=== PATIENT | female | born 1970 | race Caucasian/White ===

== ENCOUNTER → 2022-10-02 08:13 | Outpatient (CLI) | payer OTHER, SELFPAY ==
--- NOTE | 2022-10-02 08:16 | DI.MG.S_ITS ---
BILATERAL DIGITAL SCREENING MAMMOGRAM 3D/2D WITH CAD: 10/02/2022 CLINICAL: Routine screening. Baseline exam. No prior exams were available for comparison. Both breasts are extremely dense, which lowers the sensitivity of mammography (category d />75% glandular tissue). Current study was also evaluated with a Computer Aided Detection (CAD) system. There are grouped calcifications in the right breast at 6 o'clock posterior depth. No other significant masses, calcifications, or other findings are seen in either breast. IMPRESSION: INCOMPLETE: NEEDS ADDITIONAL IMAGING EVALUATION The grouped calcifications in the right breast are indeterminate. Magnification, lateral, and additional views are recommended. Based on Tyrer-Cuzick model (a risk assessment model), the patient's lifetime risk is 21.0% and her 10 year risk is 4.9%. If a patient has an elevated risk, a more comprehensive evaluation should be considered and/or a referral to a genetic counselor. The [place] [employer], [place] [employer], and NCCN Guidelines advise the consideration of Breast MRI as an adjunct to screening mammography in patients whose Lifetime risk to develop breast cancer is 20% or higher. This exam was interpreted at Station ID: [id number]. NOTE: For mammograms, a report in lay terms will be sent to the patient. Approximately 15% of breast malignancies will not be visualized mammographically. In the management of a palpable breast mass, a negative mammogram must not discourage biopsy of a clinically suspicious lesion. Electronically Signed By: Carlos blackman/clarita:10/02/2022 11:56:30 letter sent: Additional Imaging Needed ACR BI-RADS Category 0: Incomplete 3340F
== END ==
PROVIDERS: PCP Pediatrics; Referring Provider Pediatrics; Visit Provider Pediatrics
DX: Z12.31 Encounter for screening mammogram for malignant neoplasm of breast (principal)
CPT/HCPCS: 77063; 77067

== ENCOUNTER → 2022-10-16 09:50 | Outpatient (CLI) | payer OTHER, SELFPAY ==
--- NOTE | 2022-10-16 10:48 | DI.MG.S_ITS ---
Patient Name: SYLVESTER WORLEY date: 1970 Sex: F Attending Physician: Amadeo Indications: Date: 10/18/2022 13:16 At the request of: BUNNY BUCKLEY Procedure: MM special view RT UNILATERAL RIGHT DIGITAL DIAGNOSTIC MAMMOGRAM 3D/2D WITH ADDITIONAL VIEWS: 10/16/2022 CLINICAL: Additional evaluation requested from prior study. Comparison is made to exam dated: 10/02/2022 mammogram - [facility]. The right breast is extremely dense, which lowers the sensitivity of mammography (category d />75% glandular tissue). There are 5 mm grouped round and amorphous calcifications in the right breast at 6 o'clock posterior depth. No other significant masses or calcifications are seen in the breast. IMPRESSION: SUSPICIOUS OF MALIGNANCY Right breast 5 mm grouped calcifications at 6:00 posterior depth. Findings represent a suspicious abnormality. Stereotactic biopsy is recommended. Findings and recommendations were conveyed to the patient by Dr. Arcos at the time of imaging completion. Of note, no priors are available at the time of diagnostic imaging, however patient states this finding was previously biopsed without clip placement. Comparison to outside priors can be performed if they become available. Based on Tyrer-Cuzick model (a risk assessment model), the patient's lifetime risk is 21.0% and her 10 year risk is 4.9%. If a patient has an elevated risk, a more comprehensive evaluation should be considered and/or a referral to a genetic counselor. The [place] [employer], [place] [employer], and NCCN Guidelines advise the consideration of Breast MRI as an adjunct to screening mammography in patients whose Lifetime risk to develop breast cancer is 20% or higher. Continued Report - Page 2 of 2 Patient Name: SYLVESTER WORLEY date: 1970 Sex: F Attending Physician: Amadeo Indications: Date: 10/18/2022 13:16 At the request of: BUNNY BUCKLEY Procedure: MM special view RT This exam was interpreted at Station ID: Unknown. NOTE: For mammograms, a report in lay terms will be sent to the patient. Approximately 15% of breast malignancies will not be visualized mammographically. In the management of a palpable breast mass, a negative mammogram must not discourage biopsy of a clinically suspicious lesion. Electronically Signed By: Florence Serrato M.D. esb/:10/18/2022 13:16:47 letter sent: Biopsy Required ACR BI-RADS Category 4: Suspicious abnormality 3344F
== END ==
PROVIDERS: PCP Pediatrics; Referring Provider Pediatrics; Visit Provider Pediatrics
DX: R92.8 Other abnormal and inconclusive findings on diagnostic imaging of breast (principal); R92.1 Mammographic calcification found on diagnostic imaging of breast
CPT/HCPCS: 77065; G0279

== ENCOUNTER 2022-11-03 21:46 | Emergency (ER) | payer OTHER, SELFPAY ==
[2022-11-03 21:56] VITALS: BP 165/74; PULSE 62; RESP 17; TEMP 36.9; O2SAT 97; BMI 23.5
--- NOTE | 2022-11-03 22:43 | ED_ITS ---
HPI - Back Pain/Injury General Chief Complaint: Back Pain/Injury Stated Complaint: Severe back pain Time Seen by Provider: 11/03/22 22:35 Source: patient Mode of arrival: Ambulatory Limitations: no limitations History of Present Illness HPI Narrative: Patient is a 51-year-old female who is here for evaluation of left-sided lower back discomfort. She states it has been off and on for the past couple days but significantly worse over the past day or so. No fevers. No urinary symptoms. No change in bowel habits. There was not 1 specific incident that caused the discomfort but she states that they have been boating the past couple days and has been doing quite a bit of lifting and moving around. She states that it is not made worse with palpation but is made worse with movements. She had a needle biopsy done today of a breast mass. She was told to not take anti- inflammatories for 24 hours. She did take Tylenol prior to arrival with only minimal improvement. Related Data Previous Rx's Medication Instructions Recorded cyclobenzaprine 10 mg tablet 10 mg PO TID PRN muscle spasm #7 11/03/22 tabs Allergies Allergy/AdvReac Type Severity Reaction Status Date / Time Sulfa (Sulfonamide Allergy Severe Anaphylaxis Verified 11/03/22 22:00 Antibiotics) Review of Systems Constitutional Constitutional: Reports system reviewed and no additional complaints, except as documented Genitourinary Genitourinary: Reports system reviewed and no additional complaints, except as documented Musculoskeletal Musculoskeletal: Reports system reviewed and no additional complaints, except as documented Integumentary/Breasts Skin/Breast: Reports system reviewed and no additional complaints, except as documented Neurologic Neurologic: Reports system reviewed and no additional complaints, except as documented Patient History Medical History Asthma Eczema Family History (Updated 11/03/22 @ 21:04 by Amber Beach) Father Cancer Mother Cancer Hypertension Hyperlipidemia Grandfather Hypertension Stroke Social History Smoking Status: Never smoker Smoking Status: Never smoker alcohol intake frequency: a few times a week Substance Use Type: does not use Exam Initial Vital Signs Initial Vital Signs: Vital Signs Temperature 98.5 F 11/03/22 21:56 Pulse Rate 62 11/03/22 21:56 Respiratory Rate 17 11/03/22 21:56 Blood Pressure 165/74 H 11/03/22 21:56 Pulse Oximetry 97 11/03/22 21:56 Oxygen Delivery Method Room Air 11/03/22 21:56 Back/Spine/Pelvis Thoracic/Lumbar Spine: No paraspinal tenderness, No thoracic spinal tenderness and No lumbar spinal tenderness Other: She states the discomfort is localized to the left lower back and left SI joint but is not made worse with palpation Skin General: no rashes or lesions noted Neuro General: patient alert and moves all extremities Extrem General: capillary refill normal Course Orders Ordered: Discontinued Medications Hydrocodone Bitart/Acetaminophen (Hydrocodone/Acet 5/325 Prepack) 1 bottle MISC SEEINSTR ONE Stop: 11/03/22 22:45 Last Admin: 11/03/22 22:55 Dose: 1 bottle Documented By: MARTÍNEZ Cyclobenzaprine HCl (Cyclobenzaprine 10 Mg Prepack) 1 bottle MISC SEEINSTR ONE Stop: 11/03/22 22:45 Last Admin: 11/03/22 22:55 Dose: 1 bottle Documented By: MARTÍNEZ Vital Signs Vital signs: Vital Signs - 8 hr 11/03/22 21:56 11/03/22 22:55 Temperature 98.5 F Pulse Rate 62 77 Respiratory Rate 17 16 Blood Pressure 165/74 H 115/85 Pulse Oximetry 97 99 Oxygen Delivery Method Room Air Room Air MDM - Back Pain/Injury MDM Narrative Medical decision making narrative: No indication for any radiologic studies. I suspect that this is muscular in etiology. Low suspicion for cauda equina, fracture. Will treat symptomatic ally. Was sent home with a prescription for muscle relaxers and pain medication. After 24 hours has passed from her needle biopsy she can start to take the anti-inflammatories again. She was given return precautions. She expressed understanding and agreement. Discharge Plan Departure Patient Disposition: Home Clinical Impression: Strain of lumbar region Instructions: DI for Low Back Pain Activity Restrictions/Additional Instructions: I do recommend that you use the muscle relaxers and the pain medication as needed. Once you past 24 hours from the needle biopsy you can take anti- inflammatories such as Motrin/Naprosyn. Also recommend that you try to stay as active as possible. Also use heat/ice and light stretching and massage. Return to the emergency department for new symptoms. Prescriptions: New cyclobenzaprine 10 mg tablet 10 mg PO TID PRN (Reason: muscle spasm) Qty: 7 0RF Referrals: Duke Childs MD [Primary Care Provider] - Stand Alone Forms: Patient Portal/API
[2022-11-03 22:55] VITALS: BP 115/85; PULSE 77; RESP 16; O2SAT 99
[2022-11-03] MEDS: HYDROCODONE/ACET 5/325 PREPACK 1 BOTTLE MISC (22:55)
[2022-11-03] MEDS: CYCLOBENZAPRINE 10 MG PREPACK 1 BOTTLE MISC (22:55)
== END 2022-11-03 22:58 | disposition home or self-care (01) ==
PROVIDERS: Emergency Provider Emergency Medicine; PCP Pediatrics
DX: S39.012A Strain of muscle, fascia and tendon of lower back, initial encounter (principal); X58.XXXA Exposure to other specified factors, initial encounter
CPT/HCPCS: 99281; 99283

== ENCOUNTER 2023-09-29 12:24 | Day surgery (SDC) | payer OTHER, SELFPAY ==
--- NOTE | 2023-09-29 12:07 | PM.HP.1 ---
History of Present Illness History of Present Illness Date Patient Seen: 09/29/23 Chief complaint: SDC Narrative: 52-year-old woman here for 1st time screening colonoscopy. Father has a history of colon cancer at age 65. No abdominal concerns today. [facility] Medical History (Updated 11/18/22 @ 00:05 by ) Muscle spasm Eczema Asthma Family History (Updated 11/03/22 @ 21:04 by Amber Beach) Father Cancer Mother Cancer Hypertension Hyperlipidemia Grandfather Hypertension Stroke Social History Smoking Status: Never smoker alcohol intake: current Meds Home Medications and Allergies Home Medications Medication Instructions Recorded Confirmed Type levothyroxine 50 mcg tablet 50 mcg PO DAILY #90 tabs 09/22/23 09/29/23 Rx multivitamin combination no.56 1 tab PO DAILY 09/22/23 09/29/23 History Allergies Allergy/AdvReac Type Severity Reaction Status Date / Time Sulfa (Sulfonamide Allergy Severe Anaphylaxis Verified 09/29/23 12:54 Antibiotics) Exam Narrative Exam Narrative: General adult woman alert oriented no acute distress Chest nonlabored respiration Extremities warm well perfused Assessment & Plan Assessment & Plan narrative: The patient requires colorectal screening and colonoscopy is recommended. Technical details were discussed. Risks, benefits, alternatives explained. Risks including but not limited to myocardial infarction, aspiration, bleeding, pain, missed lesion, incomplete examination, need for further radiographic studies, intestinal injury, and need for major abdominal surgery were discussed. All questions were answered to their satisfaction, and they are in agreement with this plan. Time-Based Coding :: [TOTAL MINUTES] spent with patient and on the chart (including review of chart, obtaining history, exam, reviewing outside data, placing orders, documenting exam and treatment plan, and counseling patient) on [DATE].
[2023-09-29 12:47] VITALS: BP 132/78; PULSE 58; RESP 16; TEMP 36.7; O2SAT 99
[2023-09-29] MEDS: LACTATED RINGERS 1,000 ML 42 ML IV (12:56)
[2023-09-29 13:38] VITALS: BP 105/74; PULSE 67; RESP 11; TEMP 36; O2SAT 96
[2023-09-29 13:41] VITALS: BP 113/68; PULSE 80; RESP 16; O2SAT 95
[2023-09-29 13:43] VITALS: BP 105/76; PULSE 71; RESP 28; O2SAT 95
--- NOTE | 2023-09-29 13:44 | P.OP.COLON_ITS ---
Operative Date/Time/Diagnoses Date of procedure: 09/29/23 Time of procedure: 13:44 Pre-op diagnosis: Family history of colon Post-op diagnosis: same Procedure & Clinicians Study performed: Screening colonoscopy Same procedure as scheduled: Yes Indications: 52-year-old woman father has history of colon cancer. Here for screening colonoscopy. Surgeon: Lee Oneill Procedure Notes Procedure in detail: The history and physical was performed/updated and the patient is ASA class is 2. The procedure was discussed in detail with the patient. Potential risks complications including infection, bleeding, missed diagnosis, perforation, need for surgery, and were explained. Their questions were answered and informed consent was obtained. Patient was brought to the procedure room and placed standard monitoring equipment. The patient's vital signs were monitored continuously throughout the entire procedure. Prior to starting time-out was performed. The patient was placed in the left lateral recumbent position. Procedural sedation was administered by anesthesia. Examination began with a thorough inspection of the perianal area there was no evidence of fissures, fistulae, external hemorrhoids or cutaneous malignancy. The colonoscopy scope was then placed into the anal canal and was advanced to the cecum, which was identified by the ileocecal valve, the appendiceal orifice and the confluence of the taenia. The scope was then slowly withdrawn examining colon thoroughly in all directions, irrigating it of any residual stool. The scope was retroflexed within the rectum The patient tolerated the procedure well. They will be discharged once criteria are met. The prep was of good/excellent quality. The withdrawl time was 7 minutes. FINDINGS * Healthy colonic mucosa without polyps or mass. * Internal hemorrhoids grade 1 Specimen(s): none sent Impression: Normal colonoscopy Post-procedure Recommendations: Colonoscopy in 5 years (For family history) Disposition: same day surgery
[2023-09-29 13:52] VITALS: BP 119/90; PULSE 70; RESP 16; O2SAT 95
[2023-09-29 13:54] VITALS: BP 108/79; PULSE 62; RESP 22; O2SAT 94
== END 2023-09-29 14:02 | disposition home or self-care (01) ==
PROVIDERS: PCP Family Medicine; Referring Provider Surgery; Visit Provider Surgery
PROC: 0DJD8ZZ Inspection of Lower Intestinal Tract, Via Natural or Artificial Opening Endoscopic (ICD-10-PCS; CPT 45378; principal; 2023-09-29 13:15)
DX: Z12.11 Encounter for screening for malignant neoplasm of colon (principal); Z80.0 Family history of malignant neoplasm of digestive organs; K64.0 First degree hemorrhoids
CPT/HCPCS: 45378; J2704

== ENCOUNTER → 2023-11-02 12:43 | Outpatient (CLI) | payer OTHER, SELFPAY ==
--- NOTE | 2023-11-02 12:44 | DI.MG.S_ITS ---
BILATERAL DIGITAL SCREENING MAMMOGRAM 3D/2D WITH CAD: 11/02/2023 CLINICAL: Routine screening. Family history of breast cancer. Comparison is made to exam dated: 10/02/2022 mammogram - [facility]. Both breasts are extremely dense, which lowers the sensitivity of mammography (category d />75% glandular tissue). Current study was also evaluated with a Computer Aided Detection (CAD) system. There is a biopsy clip in the right breast. No significant masses, calcifications, or other findings are seen in either breast. There has been no significant interval change. IMPRESSION: BENIGN There is no mammographic evidence of malignancy. A 1 year screening mammogram is recommended. Based on Tyrer-Cuzick model (a risk assessment model), the patient's lifetime risk is 21.0% and her 10 year risk is 5.1%. If a patient has an elevated risk, a more comprehensive evaluation should be considered and/or a referral to a genetic counselor. The [place] [employer], [place] [employer], and NCCN Guidelines advise the consideration of Breast MRI as an adjunct to screening mammography in patients whose Lifetime risk to develop breast cancer is 20% or higher. This exam was interpreted at Station ID: [id number]. NOTE: For mammograms, a report in lay terms will be sent to the patient. Approximately 15% of breast malignancies will not be visualized mammographically. In the management of a palpable breast mass, a negative mammogram must not discourage biopsy of a clinically suspicious lesion. Electronically Signed By: Kam brownlee/clarita:11/02/2023 16:00:19 letter sent: Normal Exam ACR BI-RADS Category 2: Benign Finding(s) 3342F
== END ==
PROVIDERS: PCP Family Medicine; Referring Provider Family Medicine; Visit Provider Family Medicine
DX: Z12.31 Encounter for screening mammogram for malignant neoplasm of breast (principal); Z80.3 Family history of malignant neoplasm of breast; R92.343 Mammographic extreme density, bilateral breasts
CPT/HCPCS: 77063; 77067